=== PATIENT | female | born 2000 | race Caucasian/White ===

== ENCOUNTER 2019-04-02 12:15 | Emergency (ER) | payer OTHER ==
[~2019-04-02] VITALS: Ht 147.3 cm; Wt 68.5 kg
[2019-04-02 12:27] VITALS: BP 117/66
--- NOTE | 2019-04-02 12:35 | NUR ---
BIB SELF. PT AAO X4 C/O FEVER ON AND OFF SINCE March, + N/V/D X 5 DAYS, PT 7 WEEKS AND 5 DAYS, [id number]. PT STATES PRODUCTIVE COUGH WITH YELLOW PHLEGM, SOB AT NIGHT TIME. EQUAL CLEAR ELLE LUNGS UPON AUSCULTATION. PT TAKES CHILDREN'S TYLENOL FOR FEVER, LAST TAKEN UNKNOWN. AFEBRILE AT THIS TIME. HOB UP. BED SIDE RAILS UP X1. ON LOW BED POSITION, LOCKED. ER MADE AWARE OF PT STATUS.
[2019-04-02] MEDS ORDERED: ACETAMINOPHEN EXTRA STRENGTH 500 MG TAB PO ONE (14:10)
[2019-04-02] MEDS ORDERED: ONDANSETRON 4 MG ODT PO ONE (14:10)
--- NOTE | 2019-04-02 14:10 | NUR ---
DR MOMIN AT BEDSIDE FOR PT EVALUATION
[2019-04-02 14:26] LABS: BASOPHILS % (AUTO) 0.6 % (0.0-2.0); EOSINOPHILS # (AUTO) 0.2 K/uL (0-0.4); EOSINOPHILS % (AUTO) 2.3 % (0.0-4.0); HEMATOCRIT 34.1 % (36-48); HEMOGLOBIN 10.7 g/dL (12.0-16.0); LYMPHOCYTES # (AUTO) 2.1 K/uL (2.5-16.5); LYMPHOCYTES % (AUTO) 26.8 % (20.5-51.1); MEAN CORPUSCULAR HEMOGLOBIN 22 pg (27-31); MEAN CORPUSCULAR HGB CONC 31 g/dL (33-37); MEAN CORPUSCULAR VOLUME 69.7 fL (80-94); MONOCYTES # (AUTO) 0.4 K/uL (0.8-1.0); MONOCYTES % (AUTO) 5.5 % (1.7-9.3); NEUTROPHILS % (AUTO) 64.8 % (42.2-75.2); PLATELET COUNT (AUTO) 274 K/uL (140-450); RED BLOOD CELL COUNT(AUTO) 4.89 MIL/uL (4.20-5.40); RED CELL DISTRIBUTION WIDTH 20.2 % (11.6-13.7); WHITE BLOOD COUNT (AUTO) 7.7 K/uL (4.5-11.0)
--- NOTE | 2019-04-02 14:28 | NUR ---
ULTRA SOUND TECH AT BEDSIDE
[2019-04-02 14:35] LABS: APPEARANCE,URINE CLEAR (CLEAR); BILIRUBIN,URINE NEGATIVE (NEGATIVE); BLOOD, URINE NEGATIVE (NEGATIVE); COLOR,URINE YELLOW (YELLOW); LEUKOCYTE ESTERASE ,URINE NEGATIVE (NEGATIVE); NITRITE, URINE NEGATIVE (NEGATIVE); UGLUCOSE NEGATIVE (NEGATIVE)
[2019-04-02 14:43] LABS: ALBUMIN 3.3 g/dL (3.4-5.0); ANION GAP 12.2 (8-16); CARBON DIOXIDE 27.5 mmol/L (21-32); CREATININE 0.5 mg/dL (0.6-1.3); POTASSIUM 3.7 mmol/L (3.5-5.1); TOTAL BILIRUBIN 0.3 mg/dL (0.0-1.0)
[2019-04-02 15:25] VITALS: BP 114/66
--- NOTE | 2019-04-02 15:55 | NUR ---
PATIENT ELOPED FROM FACILITY. DISCHARGE INSTRUCTIONS NOT GIVEN TO PATIENT. DR. MOMIN NOTIFIED.
== END 2019-04-02 15:55 | disposition home or self-care (01) ==
LOC: MED 12:15
DX: O26.891 Other specified pregnancy related conditions, first trimester (principal); O21.9 Vomiting of pregnancy, unspecified; R10.11 Right upper quadrant pain; R10.30 Lower abdominal pain, unspecified; J45.909 Unspecified asthma, uncomplicated; R50.9 Fever, unspecified; Z3A.01 Less than 8 weeks gestation of pregnancy
CPT/HCPCS: 36415; 76705; 80053; 81003; 81025; 83690; 85025; 99284; Q0092; Q0162